=== PATIENT | female | born 1995 | race Caucasian/White ===

== ENCOUNTER 2020-03-11 12:03 | Emergency (ER) | payer OTHER ==
[~2020-03-11 12:03] MED LIST: NORCO 5-325 TA1 EACH PO; PRENATAL VITAM1 EAC8 PO; ZANTAC150 MG PO
[2020-03-11] MEDS ORDERED: IBU800 MG PO (15:33)
== END 2020-03-11 15:36 | disposition home or self-care (01) ==
LOC: ER1 12:03
DX: M79.622 Pain in left upper arm (principal); M79.632 Pain in left forearm; R60.0 Localized edema; Z88.1 Allergy status to other antibiotic agents
CPT/HCPCS: 71046; 73030; 93971; 99284

== ENCOUNTER → 2020-03-19 | Outpatient (CLI) | payer OTHER ==
[~2020-03-19] MED LIST changes: +IBU800 MG PO
[2020-03-19 10:42] LABS: HEMOGLOBIN 12.2 gm/dl (12.3-15.3); RED BLOOD COUNT 4.6 M/UL (4.00-5.10); WHITE BLOOD COUNT 5.5 K/UL (4.5-11.0)
[2020-03-19 11:01] LABS: BUN/CREATININE RATIO 20 (0-10)
== END ==
LOC: LAB 09:47
PROVIDERS: Nurse Practitioner Family
DX: Z13.220 Encounter for screening for lipoid disorders (principal); R60.0 Localized edema
CPT/HCPCS: 36415; 80053; 80061; 81001; 84439; 84443; 85025; 85379

== ENCOUNTER → 2021-02-10 | Outpatient (CLI) | payer OTHER ==
[2021-02-10 16:32] LABS: ADENOVIRUS F 40/41 Not Detected (Negative); ASTROVIRUS Not Detected (Negative); CAMPYLOBACTER Not Detected (Negative); CLOSTRIDIUM DIFFICILE TOX A/B Not Detected (Negative); E.COLI 0157 Not Detected (Negative); ENTAMOEBA HISTOLYTICA Not Detected (Negative); ENTEROAGGREGATIVE E.COLI (EAEC Not Detected (Negative); ENTEROPATHOGENIC E.COLI (EPEC) Not Detected (Negative); ENTEROTOXIGENIC E.COLI (ETEC) Not Detected (Negative); GIARDIA LAMBLIA Not Detected (Negative); NOROVIRUS GI/GII Not Detected (Negative); PLESIOMONAS SHIGELLOIDES Not Detected (Negative); ROTOVIRUS A Not Detected (Negative); SALMONELLA Not Detected (Negative); SAPOVIRUS Not Detected (Negative); SHIG/ENTEROINVAS.ECOLI (EIEC) Not Detected (Negative); SHIGA-LIK TOX.PRO.E.COLI (STEC Not Detected (Negative); VIBRIO Not Detected (Negative); VIBRIO CHOLERAE Not Detected (Negative); YERSINIA ENTEROCOLITICA Not Detected (Negative)
[2021-02-10 16:37] LABS: HEMOGLOBIN 13.9 gm/dl (12.3-15.3); RED BLOOD COUNT 5.21 M/UL (4.00-5.10)
[2021-02-11 08:13] LABS: A/G RATIO 1.9 (1.2-2.2); BILIRUBIN, TOTAL 0.4 mg/dL (0.0-1.2); CALCIUM, SERUM 8.9 mg/dL (8.7-10.2); CREATININE, SERUM 0.77 mg/dL (0.57-1.00); GLOBULIN, TOTAL 2.4 g/dL (1.5-4.5); POTASSIUM, SERUM 3.3 mmol/L (3.5-5.2); PROTEIN, TOTAL, SERUM 6.9 g/dL (6.0-8.5)
[2021-02-11 09:25] LABS: CRYPTOSPORIDIUM DETECTED (Negative)
== END ==
LOC: LAB 16:01
PROVIDERS: Nurse Practitioner Family
DX: R19.7 Diarrhea, unspecified (principal)
CPT/HCPCS: 36415; 80053; 81001; 85025; 87507